=== PATIENT | male | born 1980 | race Caucasian/White ===

== ENCOUNTER 2022-09-19 00:30 | Emergency (ER) | payer SELFPAY ==
[~2022-09-19] VITALS: Ht 190.5 cm; Wt 113.4 kg
[2022-09-19 00:38] VITALS: BP 123/58
--- NOTE | 2022-09-19 00:56 | NUR ---
COVERING PRIMARY RN FOR LUNCH RELIEF. SEE COMPLETE ASSESSMENT
--- NOTE | 2022-09-19 00:56 | NUR ---
PT AMB TO BED #2
[2022-09-19 00:59] LABS: APPEARANCE,URINE CLEAR (CLEAR); BILIRUBIN,URINE NEGATIVE (NEGATIVE); BLOOD, URINE NEGATIVE (NEGATIVE); COLOR,URINE YELLOW (YELLOW); LEUKOCYTE ESTERASE ,URINE NEGATIVE (NEGATIVE); NITRITE, URINE NEGATIVE (NEGATIVE); UGLUCOSE NEGATIVE (NEGATIVE)
--- NOTE | 2022-09-19 02:00 | NUR ---
Patient resting in bed, A/Ox4, chest rise and fall symmetrical, no c/o pain and no s/s of distress, on monitor.
[2022-09-19 02:18] VITALS: BP 121/64
--- NOTE | 2022-09-19 02:18 | NUR ---
Patient discharged with v/s stable. Written and verbal after care instructions given and explained. Patient verbalized understanding. Ambulatory with steady gait. All questions addressed prior to discharge. Advised to follow up with PMD.
== END 2022-09-19 02:18 | disposition home or self-care (01) ==
LOC: MED 00:30
DX: K40.90 Unilateral inguinal hernia, without obstruction or gangrene, not specified as recurrent (principal)
CPT/HCPCS: 81003; 99283